=== PATIENT | male | born 2000 | race African-American/Black ===

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

== ENCOUNTER 2022-03-19 01:53 | Emergency (ER) | payer OTHER ==
[~2022-03-19] VITALS: Ht 175.3 cm; Wt 79.5 kg
[~2022-03-19 01:53] MED LIST: DIPH25CA85 PO
[2022-03-19] MEDS ORDERED: CEPHALEXIN MONOHYDRATE 500 MG CAPSULE PO ONE (02:45)
[2022-03-19] MEDS ORDERED: IBUPROFEN 600 MG TABLET PO ONE (02:45)
[2022-03-19] MEDS ORDERED: SULFAMETHOX/TRIMETH DS 800-160 MG/TABLET PO ONE (02:45)
[2022-03-19] MEDS ORDERED: SULF-261 PO (02:55)
[2022-03-19] MEDS ORDERED: CEPH-558 PO (02:55)
[2022-03-19 03:15] VITALS: BP 121/70
== END 2022-03-19 04:06 | disposition home or self-care (01) ==
LOC: EMS 01:54
DX: L02.416 Cutaneous abscess of left lower limb (principal); Z91.010 Allergy to peanuts
CPT/HCPCS: 99284; Z7502; Z7610

== ENCOUNTER 2022-11-26 17:20 | Emergency (ER) | payer OTHER ==
[~2022-11-26] VITALS: Ht 177.8 cm; Wt 79.0 kg
[~2022-11-26 17:20] MED LIST changes: +CEPH-558 PO; +SULF-261 PO
[2022-11-26 17:27] VITALS: TEMP 98
[2022-11-26] MEDS ORDERED: KETOROLAC TROMETHAMINE 30 MG/ML VIAL IM ONE (17:30)
[2022-11-26] MEDS ORDERED: OxyCODONE HCL 5 MG IR TABLET PO ONE (17:30)
[2022-11-26 18:30] VITALS: BP 122/76; PULSE 72; RESP 16
== END 2022-11-26 20:03 | disposition home or self-care (01) ==
LOC: EMS 17:28
DX: S43.004A Unspecified dislocation of right shoulder joint, initial encounter (principal); Z91.010 Allergy to peanuts; X58.XXXA Exposure to other specified factors, initial encounter; Y93.89 Activity, other specified; Y92.89 Other specified places as the place of occurrence of the external cause; Y99.8 Other external cause status
CPT/HCPCS: 99284; 23650; 73030; 96372; J1885